=== PATIENT | female | born 1995 | race Caucasian/White ===

== ENCOUNTER 2018-01-02 03:18 | Emergency (ER) | payer BC ==
--- NOTE | 2018-01-02 04:08 | EDM.PDOC ---
ED HPI GENERAL MEDICAL PROBLEM - General Chief Complaint: General Stated Complaint: TOOTH PAIN Time Seen by Provider: 01/02/18 04:05 - History of Present Illness INITIAL COMMENTS - FREE TEXT/NARRATIVE: HISTORY AND PHYSICAL: History of present illness: Patient is 22-year-old female presents with concern of dental pain this is her right upper molar worse over last several days she denies fever chills nausea vomiting or other complaints Review of systems: As per history of present illness and below otherwise all systems reviewed and negative. Past medical history: As per history of present illness and as reviewed below otherwise noncontributory. Surgical history: As per history of present illness and as reviewed below otherwise noncontributory. Social history: No reported history of drug or alcohol abuse. Family history: As per history of present illness and as reviewed below otherwise noncontributory. Physical exam: HEENT: Atraumatic, normocephalic, pupils reactive, negative for conjunctival pallor or scleral icterus, mucous membranes moist, throat clear, neck supple, nontender, trachea midline. Generally poor dentition some gingival edema in the region of the right upper molar noted Lungs: Clear to auscultation, breath sounds equal bilaterally, chest nontender. Heart: S1S2, regular, negative for clicks, rubs, or JVD. Abdomen: Soft, nondistended, nontender. Negative for masses or hepatosplenomegaly. Negative for costovertebral tenderness. Pelvis: Stable nontender. Genitourinary: Deferred. Rectal: Deferred. Extremities: Atraumatic, negative for cords or calf pain. Neurovascular unremarkable. Neuro: Awake, alert, oriented. Cranial nerves II through XII unremarkable. Cerebellum unremarkable. Motor and sensory unremarkable throughout. Exam nonfocal. Diagnostics: None Therapeutics: None Impression: #1 dentalgia rule out dental abscess[] Definitive disposition and diagnosis as appropriate pending reevaluation and review of above. Oral/Mouth Pain Score (Numeric/FACES): 7 - Related Data Allergies Allergy/AdvReac Type Severity Reaction Status Date / Time Penicillins Allergy Hives Verified 01/02/18 03:32 Home Meds: Home Meds FLUoxetine [PROzac] 10 mg PO BEDTIME 01/02/18 [History] Past Medical History Psychiatric History: Reports: Depression Social & Family History - Tobacco Use Smoking Status *Q: Never Smoker ED ROS GENERAL - Review of Systems Review Of Systems: ROS reveals no pertinent complaints other than HPI. ED EXAM, GENERAL - Physical Exam Exam: See Below (See dictation) Course - Vital Signs Last Recorded V/S: Last Vital Signs Temp 36.7 C 01/02/18 03:31 Pulse 87 01/02/18 03:31 Resp 16 01/02/18 03:31 BP 132/71 01/02/18 03:31 Pulse Ox 98 01/02/18 03:31 Departure - Departure Time of Disposition: 04:07 Disposition: Home, Self-Care 01 Condition: Good Clinical Impression: Dentalgia, Dental abscess - Discharge Information Referrals: Ariela Yoder NP [Primary Care Provider] - Additional Instructions: The following information is given to patients seen in the emergency department who are being discharged to home. This information is to outline your options for follow-up care. We provide all patients seen in our emergency department with a follow-up referral. The need for follow-up, as well as the timing and circumstances, are variable depending upon the specifics of your emergency department visit. If you don't have a primary care physician on staff, we will provide you with a referral. We always advise you to contact your personal physician following an emergency department visit to inform them of the circumstance of the visit and for follow-up with them and/or the need for any referrals to a consulting specialist. The emergency department will also refer you to a specialist when appropriate. This referral assures that you have the opportunity for followup care with a specialist. All of these measure are taken in an effort to provide you with optimal care, which includes your followup. Under all circumstances we always encourage you to contact your private physician who remains a resource for coordinating your care. When calling for followup care, please make the office aware that this follow-up is from your recent emergency room visit. If for any reason you are refused follow-up, please contact the [facility] emergency department at and asked to speak to the emergency department charge nurse. Follow-up dentist as discussed clindamycin as directed Motrin/Tylenol as directed and return as needed as discussed
[2018-01-02] MEDS ORDERED: Lidocaine 2% Viscous Solution 15 ML Cup PO ONE (04:15)
[2018-01-02] MEDS ORDERED: Benzocaine 20% Topical Spray UD MUCMEM ONE (04:17)
== END 2018-01-02 04:30 | disposition home or self-care (01) ==
LOC: MW.ED 03:18
DX: K04.7 Periapical abscess without sinus (principal); Z88.0 Allergy status to penicillin
CPT/HCPCS: 99282; A9270